=== PATIENT | male | born 1970 | race Caucasian/White ===

== ENCOUNTER 2023-09-28 08:30 | Outpatient (RCR) | payer OTHER, SELFPAY ==
--- NOTE | 2023-07-27 10:49 | HP.PTEVAL_ITS ---
Patient's Visit Information Visit Information Visit Information: CALLUM TOBIN is a 53 year old M referred to Physical Therapy by Dr. Marciano Andreson MD with a diagnosis of DEGENERARIVE DISC LUMBAR ,LABRAL TEAR OF RIGHT HIP JOINT. Date of Evaluation: 07/27/23 Physical Therapist: Marciano Allan, PT, Cert MDT, OCS Visit Plan Frequency: 5x /Week Duration: 4 Weeks Plan: PT INTERVENTIONS ROM/STRENGTHENING RIGHT HIP ,FLEXABLITY ,SERENE EX'S ,POSTURAL EX'S AND DLS Subjective Subjective: This 53 y/o male presents to physical therapy with lumbar pain and hip pain. Patient seen for hip pain in groin right side and lumbar pain symmetrical when bending. Patient has had symptoms since 2018. Patient had MRI and bulging disc and labral tear. Patient seen Dr Anderson recommended PT. Patient to RTD Aug.22. Aggravating factors bending ,squatting/kneeling and extended sitting. Alleviating factors rest. Pain is described pain as ache. Patient denies any popping/clicking .Patient aggravating factors bending ,lifting . Alleviating factors resting .Coughing/sneezing -. Bowel/bladder -. Patient sleeping good. No abnormal night pain. Patient pain affects QOL and function and job demands .Patient has seen chiropractor. Patient goals to decrease pain. SOCAIL: VOCATION: Self employed Pain Right Back: Pain Intensity (Out of 10): 2 Right Hip: Pain Intensity (Out of 10): 0 Pain Intensity Range: 10 Comment: groin Objective Objective: POSTURE: mild forward posture GAIT: reciprocal pattern NEURO: denies paresthesia/tingling ,reflexes L3-4,L4-5,L5-S1 2/3 PALAPTION: LS ,mild I -T band MMT: quads/hams 4/5 ,hip flexion 4-/5 ,abduction 4-/5 ,ankle 4/5 HIP PROM: flexion 115 degrees ,IR 45 degrees ,ER 60 degrees ,hip abduction 45 degrees LUMAR ROM: flexion min loss ,extension min/mod loss ,side glides min loss FLEXABLITY : hamstrings min loss ,piriformis min loss Special Tests L/S Slump test left side: Negative L/S Slump test right side: Negative L/S Left Straight Leg Raise: Negative L/S Right Straight Leg Raise: Negative Lumbar Standing: Flexion - Mechanical Response: No effect Lumbar Standing: Flexion - Symptoms During Testing: Increases Lumbar Standing: Flexion - Symptoms After Testing: No worse Lumbar Standing: Extension - Mechanical Response: No effect Lumbar Standing: Extension - Symptoms During Testing: Increases Lumbar Standing: Extension - Symptoms After Testing: No worse Lumbar Standing: Right Side Glides - Mechanical Response: No effect Lumbar Standing: Right Side [place] - Symptoms During Testing: No effect Lumbar Standing: Right Side [place] - Symptoms After Testing: No effect Lumbar Standing: Left Side [place] - Mechanical Response: No effect Lumbar Standing: Left Side [place] - Symptoms During Testing: No effect Lumbar Standing: Left Side [place] - Symptoms After Testing: No effect Lumbar Lying: Flexion - Mechanical Response: No effect Lumbar Lying: Flexion - Symptoms During Testing: No effect Lumbar Lying: Flexion - Symptoms After Testing: No effect Lumbar Lying: Extension - Mechanical Response: No effect Lumbar Lying: Extension - Symptoms During Testing: Decreases Lumbar Lying: Extension - Symptoms After Testing: Better R Hip Scour: Positive R Hip ANICETO - Intraarticular Pathology: Negative R Hip FADDIR - Labrum: Negative R Hip Impingement Provocation - Labrum: Positive R Hip Trendelenberg - Glut Medius: Negative R Hip Bean - IT Band: Negative Balance/Special Test Scores Oswestry Low Back Score: 22 Goals Goal 1:: Patient to be I with HEP back and hip Goal Time Frame: 4-6 Weeks Goal 2:: Patient to demonstrate 50% improvement with less pain and improved function Goal Time Frame: 4-6 Weeks Goal 3:: Patient to improve lumbar ROM for function of recovery to lift with job demands Goal Time Frame: 4-6 Weeks Goal 4:: Patient to improve ROM right hip with less pain to squat and kneel to improve function 70% Goal Time Frame: 4-6 Weeks Goal 5:: Patient to improve back oswestry score by 5 points to improve function Goal Time Frame: 4-6 Weeks Rehabilitation Potential Physical Therapy Diagnosis: This patient has lumbar derangement with pain increase with flexion ,lifting better with posture correction and extension increases with positioning and motion testing ,along with hip pain in groin region with MRI showed labral tear worse with decrease ROM impairs ADLS and function thus benefit from skilled PT Rehabilitation Potential: Good Anticipated Interventions Patient/Client Instruction: Educate patient on: Condition and Plan of Care For the Purpose of:: To decrease pain, To increase ROM, To improve muscle performance and motor function, To improve ability to perform ADL's, To increase tolerance to activity/condition/position, To improve ability of physical actions for home/community/work/leisure, To improve health of tissue, To decrease soft tissue restriction, To increase flexibility/ROM, To reduce risk of recurrence and To prevent re-injury Therapeutic Exercise to Include: Strength training, Body mechanics, Postural training, Flexibilty training, Passive ROM, Active ROM, Dynamic Lumbar Stabilization and Serene Exercises Comment: RIGHT HIP For the Purpose of:: To decrease pain, To increase ROM, To improve muscle performance and motor function, To improve ability to perform ADL's, To increase tolerance to activity/condition/position, To improve ability of physical actions for home/community/work/leisure, To improve health of tissue, To decrease soft tissue restriction, To increase flexibility/ROM, To improve endurance, To reduce risk of recurrence, To prevent re-injury and To improve tolerance to ADL's TENS: Yes IF ES: Yes Cryotherapy (ice pack, ice massage): Yes Thermo therapy (hot pack): Yes Ultrasound (thermal/non thermal): Yes For the Purpose of:: To decrease pain, To increase ROM, To improve health of tissue and To decrease soft tissue restriction Text: Thank you for the opportunity to evaluate your patient. For Medicare and Medicare HMO plans, please review the plan of care and approve it. It will need to be FAXED BACK to us at [phone] for Medicare purposes. For Medicare only, by signing this I certify the plan of care. Please let me know if there are questions or concerns regarding this plan of care. Physician Signature: Date:
--- NOTE | 2024-01-25 12:20 | HP.PTDCSUM ---
Discharge Summary D/C summary: It has been my pleasure to treat CALLUM TOBIN referred by Dr. Marciano Anderson MD, with the diagnosis of DEGENERATIVE DISC LUMBAR ,LABRAL TEAR OF RIGHT HIP JOINT for a total of 12 visit(s). Discharge Date: Please see the following information for a summary of their discharge status. Subjective Subjective: Doing okay .. pain is same but getting better Pain Right Back: Pain Intensity (Out of 10): 4 Right Hip: Pain Intensity (Out of 10): 2 Overall Improvement % Improvement: 20 Objective Objective/Function: POSTURE: mild forward posture GAIT: reciprocal pattern NEURO: denies paresthesia/tingling ,reflexes L3-4,L4-5,L5-S1 2/3 PALAPTION: LS ,mild I -T band MMT: quads/hams 4/5 ,hip flexion 4-/5 ,abduction 4-/5 ,ankle 4/5 HIP PROM: flexion 115 degrees ,IR 45 degrees ,ER 60 degrees ,hip abduction 45 degrees LUMAR ROM: flexion min loss ,extension min/mod loss ,side glides min loss FLEXABLITY : hamstrings min loss ,piriformis min loss Goals Goal 1:: Patient to be I with HEP back and hip Goal 2:: Patient to demonstrate 50% improvement with less pain and improved function Goal 3:: Patient to improve lumbar ROM for function of recovery to lift with job demands Goal 4:: Patient to improve ROM right hip with less pain to squat and kneel to improve function 70% Goal 5:: Patient to improve back oswestry score by 5 points to improve function Plan Plan: RTD D/C Information d/c sentence: If there are questions or concerns regarding this patient's physical therapy, please feel free to call me at [phone]. Thank you for the referral of this patient. Sincerely, Marciano Allan, PT, Cert MDT, OCS Balance/Gait/Functional tests Balance/Special Test Scores Oswestry Low Back Score: 22 Improvement % Improvement: 20
== END 2023-09-28 19:00 | disposition home or self-care (01) ==
LOC: PT 08:30
PROVIDERS: PCP Family Medicine; Visit Provider Orthopaedic Surgery
DX: S73.191D Other sprain of right hip, subsequent encounter (principal); M51.36 Other intervertebral disc degeneration, lumbar region
CPT/HCPCS: 97110; 97162; 97530